=== PATIENT | female | born 2000 | race Caucasian/White ===

== ENCOUNTER 2021-05-04 10:06 | Emergency (ER) | payer OTHER ==
[~2021-05-04] VITALS: Ht 170.2 cm; Wt 63.5 kg
[2021-05-04 10:12] VITALS: BP 134/84
--- NOTE | 2021-05-04 10:22 | NUR ---
PATIENT AMBULATED TO BED 4. HANDED ON URINE CUP.
--- NOTE | 2021-05-04 10:29 | NUR ---
20 Y/O FEMALE C/O CHEST PAIN 12/08 DESCRIBES SHARP INTERMITTENT RADIATES TO LEFT SIDE X1DAY WITH LUQ ABD PAIN. PT STATES SHE WAS UNABLE TO MOVE FROM BED X4DAYS AND STATES SUBJECTIVE FEVER. DENIES TRAUMA/INJURY, DENIES N/V, DENIES FEVER/CHILLS TODAY. DENIES SOB. STATES SHE WAS TREATED FOR LYME 08/20 AND SEES OCO REGULARLY. PMH: LYME DISEASE, MIGRAINE, SCOLIOSIS NKA
--- NOTE | 2021-05-04 10:32 | NUR ---
EKG AT BEDSIDE
--- NOTE | 2021-05-04 10:34 | NUR ---
Patient being evaluated by DR GILL at bedside.
[2021-05-04] MEDS ORDERED: FAMO-92 PO (11:03)
[2021-05-04] MEDS ORDERED: ACETAMINOPHEN 325 MG TAB ONE (11:15)
[2021-05-04] MEDS ORDERED: FAMOTIDINE 20 MG TAB PO ONE (11:15)
[2021-05-04] MEDS ORDERED: ACETAMINOPHEN 325 MG TAB PO ONE (11:15)
[2021-05-04] MEDS ORDERED: FAMOTIDINE 20 MG TAB ONE (11:16)
[2021-05-04 11:30] VITALS: BP 126/76
== END 2021-05-04 11:30 | disposition home or self-care (01) ==
LOC: MED 10:06
DX: R07.9 Chest pain, unspecified (principal); K29.70 Gastritis, unspecified, without bleeding
CPT/HCPCS: 81002; 81025; 93005; 99283